=== PATIENT | male | born 1985 | race Caucasian/White ===

== ENCOUNTER 2019-09-26 08:46 | Inpatient (IN) | payer OTHER ==
[~2019-09-26] VITALS: Ht 188 cm; Wt 97.7 kg
--- NOTE | ~2019-09-26 | CON ---
[address] [address] CONSULTATION Name: CORY AHUMADA Room: [address] IN M.R.#: [id number] Admission: 09/26/19 Attend Phys: Boom Heard MD Discharge: 09/27/19 Date of : 81 Report #: [id number] THIS REPORT FOR: //name// cc: ALEX Carlson family physician/PCP ALEX - Robyn family physician/PCP ~ THIS REPORT FOR: //name// CC: Boom Heard MD [facility] physician/PCP [facility] DATE OF SERVICE: 09/26/2019 REFERRING PHYSICIAN: Boom Heard MD REASON FOR CONSULTATION: Intractable nausea and vomiting with hematemesis. IMPRESSION: 1. Recurrent epigastric pain associated with nausea, vomiting -- suspect cyclic vomiting syndrome due to chronic marijuana use. 2. Chronic acid reflux with personal history of Rodriguez's esophagus by patient's report. 3. Dehydration secondary to #1. 4. Hypokalemia secondary to #1. RECOMMENDATIONS: 1. Agree with the patient being admitted for IV fluids, IV pain medicines, antiemetics, etc. 2. We will begin the patient on GI cocktail, Benadryl, Phenergan and Ativan every 4 hours x 4 to see if we can "break the cycle" of his cyclic vomiting syndrome. 3. We will schedule upper endoscopy to be done tomorrow morning. 4. Depending on how he does, we may need to have him undergo an abdominal ultrasound and for a gastric emptying scan on Saturday morning. 5. I have discussed with the patient the need to discontinue chronic marijuana use, but I doubt that he will comply with this request. 6. Further recommendation will be made after tomorrow's endoscopy. HISTORY OF PRESENT ILLNESS: The patient is a pleasant 34-year-old white male who has had problems off and on for the last 2-3 days of persistent epigastric pain associated with nausea and vomiting. He has not been able to keep much of anything down. He has known history of chronic acid reflux and Rodriguez's and is on medications for the same. He states he was due for endoscopy at [facility], but has not been able to get it done because of COVID. He is currently taking [id number]-mdzqlyn Nexium 20 mg once daily [place] [address] CONSULTATION Name: CORY AHUMADA Room: [address]#: [id number] Admission: 09/26/19 Attend Phys: Boom Heard MD Discharge: 09/27/19 Date of : 81 Report #: [id number] response to the same. He denies dysphagia or odynophagia, but has some scant hematemesis. His pain is mostly in the epigastric area and anytime he eats or drink anything, whether it would be water or food, he throws it up. He does not appear to be in any distress at this time. He is not aware of cyclic vomiting syndrome nor its relationship with marijuana, but I discussed this with the patient. ALLERGIES: None. MEDICATIONS: Include esomeprazole or Nexium 20 mg once daily. PAST MEDICAL HISTORY: Remarkable for peptic ulcer disease and history of Rodriguez's esophagus, chronic reflux. He also has chronic marijuana use. SOCIAL HISTORY: The patient does smoke about a pack per day, does not drink alcohol. Smokes marijuana on a daily basis. FAMILY HISTORY: Negative. PHYSICAL EXAMINATION: GENERAL: Pleasant 34-year-old white male who is awake and alert. CARDIOPULMONARY: Revealed a regular rate and rhythm. LUNGS: Clear. ABDOMEN: Soft. His epigastric area was tender. No rebound or guarding noted. LABORATORY DATA: Laboratory tests revealed a white count of 13.5, hemoglobin 18.2 secondary to hemoconcentration, his platelet count is 335,000, MCV is 87.1 and RDW is 13.6. Differential is normal. Sodium 136, potassium 2.8, chloride 95, bicarbonate is 32, his BUN is 29, creatinine 1.2 and GFR of only 69. Total bilirubin 1.3, alkaline phosphatase 82, AST 17 and ALT 13. Albumin is 4.3. Drug screen is positive for marijuana. He has no ketones. He has protein in his urine. A CT scan of the abdomen and pelvis with contrast was unremarkable for exception of hiatal hernia. DISCUSSION: At the present time, the patient appears to be an acceptable candidate to undergo endoscopic evaluation. I suspect, however, that the problem is most of cyclic vomiting. We will proceed with upper endoscopy tomorrow and make further recommendations thereafter. By: [id number] Lujan DO /oliver
--- NOTE | ~2019-09-26 | PROC ---
[address] [address] PROCEDURE REPORT Name: CORY AHUMADA Room: [address] IN .R.#: [id number] Admission: 09/26/19 Attend Phys: Boom Heard MD Discharge: 09/27/19 Date of : 81 Report #: [id number] THIS REPORT FOR: //name// cc: ALEX - No family physician/PCP ALEX - No family physician/PCP ~ THIS REPORT FOR: //name// For GI report, please see the Provation report in Perceptive 7 content. By: 1032Medical Records Staff [facility] /REKHA
[~2019-09-26 08:46] MED LIST: NOHOMEMEDICATIONS; ZOFRAN 4 MG ORAL4 M1 DIS
[2019-09-26 08:51] VITALS: BP 137/92
[2019-09-26] MEDS ORDERED: NEXIUM20 M1 PO (08:54)
[2019-09-26 09:12] LABS: URINE BLOOD 2+ (Negative); URINE CLARITY CLEAR; URINE COLOR YELLOW; URINE GLUCOSE-RANDOM NEGATIVE (Negative); URINE KETONES NEGATIVE (Negative); URINE LEUKOCYTES-REFLEX NEGATIVE (Negative); URINE NITRITE-REFLEX NEGATIVE (Negative); URINE PROTEIN 2+ (Negative); URINE SPECIFIC GRAVITY 1.025 (1.005-1.030)
[2019-09-26 09:14] LABS: ICTOTEST (BILI CONFIRMATORY) Negative (Negative); URINE BILIRUBIN 1+ (Negative)
[2019-09-26 09:17] LABS: ABSOLUTE BASOPHILS 0.1 thou/uL (0.0-0.2); ABSOLUTE EOSINOPHILS 0.2 thou/uL (0.0-0.7); ABSOLUTE MONOCYTES 1.8 thou/uL (0.0-1.2); ABSOLUTE NEUTROPHILS 8.3 thou/uL (1.6-8.1); BASOPHILS 0.5 %; EOSINOPHILS 1.7 %; HEMATOCRIT 51.3 % (42.0-52.0); HEMOGLOBIN 18.2 gm/dL (14.0-18.0); LYMPHOCYTES 22.5 %; MCHC 35.5 g/dL (28.0-37.0); MCV 87.1 fL (80.0-100.0); MONOCYTES 13.5 %; MPV 8.4 fl. (7.2-11.1); NUCLEATED RBCS 0 /100WBC; PLATELET COUNT* 335 thou/uL (150-400); POLYS 61.8 %; RBC 5.89 mil/uL (4.50-6.00); RDW-CV 13.6 % (10.5-14.5); WBC 13.5 thou/uL (4.0-11.0)
[2019-09-26 09:26] LABS: AMP/METHAMP Negative (Negative); BARBITURATES Negative (Negative); BENZODIAZEPINES Negative (Negative); COCAINE Negative (Negative); METHADONE Negative (Negative); OPIATES Negative (Negative); PCP Negative (Negative); THC POSITIVE (Negative)
[2019-09-26 09:30] LABS: CALCIUM 8.5 mg/dL (8.5-10.1); CREATININE 1.2 mg/dL (0.6-1.3)
[2019-09-26 09:31] LABS: POTASSIUM 2.8 mmol/L (3.5-5.1)
[2019-09-26 09:36] LABS: ALBUMIN 4.3 g/dL (3.4-5.0); TOTAL BILIRUBIN 1.3 mg/dL (<0.1-1.0); TOTAL PROTEIN 8.1 g/dL (6.4-8.2)
[2019-09-26 09:39] LABS: BACTERIA-REFLEX 1-9 Few /HPF (None Seen); CRYSTALS None Seen /LPF (None Seen); HYALINE CASTS 0-3 Few /LPF (None Seen); MUCUS 4-6 Moderate strn/LPF (None Seen); SQUAMOUS 0-3 Few /LPF (0-3); URINE RBC 3-10 Few /HPF (0-2); URINE WBC-REFLEX 0-5 Rare /HPF (0-5)
[2019-09-26 12:20] VITALS: BP 135/87
[2019-09-26 13:28] VITALS: BP 133/77
[2019-09-26 16:00] VITALS: BP 108/60
--- NOTE | 2019-09-26 16:46 | NUR ---
PT ADMITTED TO ROOM 212 FROM ED WITH CYCLIC VOMITING AND HYPOKALEMIA. PT BEGAN ELECTROLYTE PROTOCOL IN ED FOR POTASSIUM LEVEL OF 2.9 TO BE CONTINUED ON FLOOR. PT C/O EPIGASTRIC IRRITATION 07/20. VSS ON RA. GI COCKTAIL BEGAN AT 1600. PT IS NOW RESTING WITH EYES CLOSED,EASILY AROUSED BUT DROWSY. SR ON THE MONITOR. PT EDUCATED ON TREATMENT, CARE, PROCEDURE IN AM,DIET, ACTIVITY AND SELF CARE. NO FURTHER REQUESTS. CLWR.
--- NOTE | 2019-09-26 17:57 | NUR ---
PT IS STILL RESTING WITH EYES CLOSED.CLWR
[2019-09-26 20:00] VITALS: BP 132/83; BP 140/82
[2019-09-27] VITALS: BP 92/45
[2019-09-27 04:00] VITALS: BP 100/47
[2019-09-27 05:10] LABS: ABSOLUTE BASOPHILS 0.1 thou/uL (0.0-0.2); ABSOLUTE EOSINOPHILS 0.2 thou/uL (0.0-0.7); ABSOLUTE LYMPHOCYTES 2.4 thou/uL (0.8-5.3); ABSOLUTE MONOCYTES 1.1 thou/uL (0.0-1.2); ABSOLUTE NEUTROPHILS 5.1 thou/uL (1.6-8.1); BASOPHILS 0.7 %; EOSINOPHILS 2.1 %; HEMATOCRIT 43.7 % (42.0-52.0); LYMPHOCYTES 26.9 %; MCH 30.7 pg (26.0-34.0); MCHC 34.7 g/dL (28.0-37.0); MCV 88.3 fL (80.0-100.0); MONOCYTES 12.3 %; MPV 9.1 fl. (7.2-11.1); NUCLEATED RBCS 0 /100WBC; RBC 4.95 mil/uL (4.50-6.00); RDW-CV 13.1 % (10.5-14.5); WBC 8.8 thou/uL (4.0-11.0)
[2019-09-27 05:39] LABS: ALBUMIN 3.3 g/dL (3.4-5.0); CALCIUM 8.1 mg/dL (8.5-10.1); CREATININE 1.1 mg/dL (0.6-1.3); POTASSIUM 3.7 mmol/L (3.5-5.1); TOTAL BILIRUBIN 1.2 mg/dL (<0.1-1.0); TOTAL PROTEIN 6.3 g/dL (6.4-8.2)
[2019-09-27 05:52] LABS: HEMOGLOBIN 15.2 gm/dL (14.0-18.0); PLATELET COUNT* 247 thou/uL (150-400)
[2019-09-27 08:00] VITALS: BP 118/43
--- NOTE | 2019-09-27 10:22 | EKG ---
[place] [address] ELECTROCARDIOGRAM REPORT Name: CORY AHUMADA Room: [address] IN [facility]#: [id number] Admission: 09/26/19 Attend Phys: Boom Heard, Discharge: Date of : 81 Date of Service: 09/26/19 0906 Report #: [id number] THIS REPORT FOR: //name// [facility] ED Test Date: 2019-09-26 Test Time: 09:06:18 Pat Name: CORY AHUMADA Department: Room: [facility] Gender: M Supervisor Logging: : 1985 Requested By: Zeus White Order Number: [id number] MD: Wilton Marie Measurements Intervals [place] Rate: 67 P: 42 WA: 139 QRS: 61 QRSD: 100 T: 68 QT: 419 QTc: 443 Interpretive Statements Sinus rhythm No previous ECG available for comparison Electronically Signed On 09-27-2019 10:20:51 CDT by Wilton Marie [email or web address] <ELECTRONICALLY SIGNED> By: Shelby Marie MD, [facility] 09/27/19 1020 09 09 Shelby Marie MD, [facility] /EPI
[2019-09-27 12:34] VITALS: BP 112/61
[2019-09-27] MEDS ORDERED: OMEPRAZOLE40 MG PO (13:32)
[2019-09-27] MEDS ORDERED: PEPCID40 MG PO (13:33)
[2019-09-27 13:35] VITALS: BP 112/61
[2019-09-28 02:07] LABS: HEPATITIS B SURFACE AG Negative (Negative)
--- NOTE | 2019-09-29 13:08 | PATH ---
[address] [address] PATHOLOGY RPT PROCEDURE Name: CORY BARRAGAN Room: [address] IN .R.#: [id number] Admission: 09/26/19 Date of : 81 Discharge: 09/27/19 Report #: [id number] Path Case #: [id number] [facility] Accession Number: [id number] . 01 Material submitted: . stomach - BIOPSY GASTRIC ANTRAL ULCER . 01 Clinical history: . Hematemesis Severe reflux, small hiatal hernia, gastric ulcer . 02 Diagnosis: Biopsy of gastric antral ulcer: - Severe chronic active antral gastritis with abundant Helicobacter pylori organisms, negative for granulomas and dysplasia. . (ELLE:mmjose manuel; 09/29/2019) [facility] 09/29/2019 1111 Local . 02 Comment: Special stain: H. pylori immuno. . (ELLE:mmjose manuel; 09/29/2019) . 02 Electronically signed: . Juan C Parham MD, Pathologist NPI- [id number] . 01 Gross description: . The specimen is received in formalin, labeled "Cory Barragan, biopsy of gastric antral ulcer" and consists of a segment of yellow-ulrich tissue measuring 0.6 x 0.3 x 0.3 cm which is entirely submitted in A1. ([facility]; 09/28/2019) JFQ/JFQ 09/28/2019 1344 Local . 02 Pathologist provided ICD-10: K29.50, B96.81 . 02 CPT . 930684, G76040 Specimen Comment: A courtesy copy of this report has been sent to [phone] Specimen Comment: Report sent to Performed at: [address] [id number] MD Bob Modi MD Phone: [phone] Performed at: [address] [address] PATHOLOGY RPT PROCEDURE Name: CORY BARRAGAN Room: [address]#: [id number] Admission: 09/26/19 Date of : 81 Discharge: 09/27/19 Report #: [id number] Path Case #: [id number] [address] [place] [id number] MD Juan C Parham MD Phone: [phone]
== END 2019-09-27 14:00 | disposition home or self-care (01) | DRG 391 ==
LOC: M.ERS 08:46 → M.TBA-ER 11:55 → M.2W 12:59
PROVIDERS: Emergency Medicine Emergency Medical Services; Internal Medicine Gastroenterology; ADMIT Internal Medicine
PROC: 0DB68ZX Excision of Stomach, Via Natural or Artificial Opening Endoscopic, Diagnostic (ICD-10-PCS; principal; 2019-09-27)
DX: K21.0 Gastro-esophageal reflux disease with esophagitis (principal); K25.4 Chronic or unspecified gastric ulcer with hemorrhage; E87.6 Hypokalemia; K44.9 Diaphragmatic hernia without obstruction or gangrene; E86.0 Dehydration; F17.210 Nicotine dependence, cigarettes, uncomplicated; F12.90 Cannabis use, unspecified, uncomplicated; Z79.899 Other long term (current) drug therapy